=== PATIENT | female | born 2000 | race African-American/Black ===

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

== ENCOUNTER 2024-04-04 10:13 | Emergency (ER) | payer OTHER ==
[~2024-04-04] VITALS: Ht 167.6 cm; Wt 60.1 kg
[~2024-04-04 10:13] MED LIST: AMOXICILLIN500 MG PO; KEFLEX125 MG/5 M PO; ONDANSETRON ODT4 MG SL
[2024-04-04 10:25] VITALS: TEMP 97.9
[2024-04-04 11:10] LABS: BASOPHILS % 0.6 % (0.0-1.0); EOSINOPHILS # (AUTO) 0.2 (0.0-0.4); EOSINOPHILS % 3.3 % (0.0-6.0); HEMATOCRIT 45.5 % (34.2-44.1); HEMOGLOBIN 14.6 g/dL (12.0-16.0); LYMPHOCYTES # (AUTO) 2.1 (1.0-3.2); LYMPHOCYTES % 28.9 % (18.0-39.1); MEAN CORPUSCULAR HEMOGLOBIN 27.9 pg (28-32); MEAN CORPUSCULAR HGB CONC 32.1 g/dL (31-35); MONOCYTES # (AUTO) 0.4 (0.2-0.8); MONOCYTES % 5.3 % (4.4-11.3); NEUTROPHILS # (AUTO) 4.4 (2.1-6.9); NEUTROPHILS % 61.6 % (38.7-80.0); PLATELET COUNT 322 x10e3/uL (140-360); RED BLOOD COUNT 5.23 x10e6/uL (3.6-5.1); RED CELL DISTRIBUTION WIDTH 15.1 % (11.7-14.4); WHITE BLOOD COUNT 7.17 x10e3/uL (4.8-10.8)
[2024-04-04 11:28] LABS: COVID 19 ANTIGEN NOT DETECTED (NEGATIVE)
[2024-04-04 11:30] LABS: ALANINE AMINOTRANSFERASE 13 IU/L (0-55); ALBUMIN 4.9 g/dL (3.5-5.0); ALBUMIN/GLOBULIN RATIO 1.6 (0.8-2.0); ALKALINE PHOSPHATASE 102 IU/L (40-150); BILIRUBIN,TOTAL 0.6 mg/dL (0.2-1.2); CREATININE, SERUM 0.79 mg/dL (0.57-1.11); EST GLOMERULAR FILTRATION RATE 108 ML/MIN (>=60); GLUCOSE 82 mg/dL (74-118); MAGNESIUM 2.1 MG/DL (1.3-2.1)
[2024-04-04 11:35] LABS: CLARITY,URINE CLEAR (CLEAR); COLOR,URINE YELLOW (YELLOW); LEUKOCYTE ESTERASE ,URINE TRACE (NEGATIVE); PH,URINE 6 (5 - 7)
[2024-04-04 11:36] LABS: BILIRUBIN,URINE NEGATIVE (NEGATIVE); GLUCOSE, URINE NEGATIVE (NEGATIVE); KETONES,URINE NEGATIVE (NEGATIVE); NITRITE,URINE NEGATIVE (NEGATIVE); PROTEIN,URINE DIPSTICK NEGATIVE (NEGATIVE); URINE UROBILINOGEN 0.2 mg/dL (0.2 - 1)
[2024-04-04 11:37] LABS: TROPONIN I < 0.001 ng/mL (0-0.300)
[2024-04-04 11:45] LABS: BACTERIA,URINE MANY /HPF; EPITHELIAL CELLS,URINE FEW /LPF; RBC,URINE 0-5 /HPF (0-5); WBC,URINE (MAN) 21-50 /HPF (0-5)
[2024-04-04] MEDS: SODIUM CHLORIDE 0.9% 1000ML 1,000 ML IV STA (11:50)
[2024-04-04 13:35] VITALS: PULSE 78; RESP 16; O2SAT 99
[2024-04-04 14:00] LABS: POTASSIUM 4.4 mmol/L (3.0-5.1); SODIUM 138 mmol/L (128-145)
[2024-04-04 14:01] LABS: ANION GAP 9.4 mmol/L (8-16); BLOOD UREA NITROGEN 14 mg/dL (7-22); BUN/CREATININE RATIO 18 (6-25); CALCIUM 9.2 mg/dL (8.0-10.3); CARBON DIOXIDE 29 mmol/L (18-33); CHLORIDE 104 mmol/L (101-111)
[2024-04-04] MEDS ORDERED: CEFDINIR300 MG PO (14:44)
== END 2024-04-04 14:51 | disposition home or self-care (01) ==
LOC: ER 10:23
DX: R42 Dizziness and giddiness (principal); N39.0 Urinary tract infection, site not specified; R07.89 Other chest pain; N80.9 Endometriosis, unspecified; Z11.52 Encounter for screening for COVID-19
CPT/HCPCS: 0223U; 36415; 71045; 80053; 81001; 83735; 84484; 84702; 85025; 93005; 99284; J7030

== ENCOUNTER 2024-10-05 15:45 | Emergency (ER) | payer OTHER ==
[~2024-10-05] VITALS: Ht 167.6 cm; Wt 59.9 kg
[~2024-10-05 15:45] MED LIST changes: +CEFDINIR300 MG PO
[2024-10-05 15:51] VITALS: PULSE 88; RESP 17; TEMP 98.7; O2SAT 99
[2024-10-05] MEDS ORDERED: LIDOCAINE HCL 1% 2 ML AMP ONE (17:47)
[2024-10-05] MEDS: ONDANSETRON HCL 4 MG ORAL DISINTEGRATING TAB PO ONE (17:54)
[2024-10-05] MEDS: AZITHROMYCIN 250 MG TAB PO ONE (17:55)
[2024-10-05] MEDS: CEFTRIAXONE 500 MG VIAL IM ONE (17:55)
== END 2024-10-05 18:34 | disposition home or self-care (01) ==
LOC: ER 15:50
DX: R10.2 Pelvic and perineal pain (principal); N89.8 Other specified noninflammatory disorders of vagina; N80.9 Endometriosis, unspecified
CPT/HCPCS: 81025; 87210; 87491; 87591; 99282; J0696; J2003; Q0162